=== PATIENT | male | born 1980 | race American Indian/Alaskan Native ===

== ENCOUNTER 2016-06-26 13:58 | Emergency (ER) | payer SELFPAY ==
[2016-06-26 15:04] VITALS: BP 136/84
--- NOTE | 2016-06-26 18:13 | Emergency Department Report ---
HPI - General Chief Complaint: Eye Problems Time Seen by Provider: 06/26/16 17:02 - HPI HPI: 36-year-old male, with past medical history of herniated disks and hemorrhoids, presents today complaining of pain around the right eye and over the temporal region x 3 days. Patient states that he was working on a car 3 days ago applying pressure and felt his right eye pop. Denies any visual change. Positive for minimal nausea. Denies tearing, erythema, drainage. Positive for history of headaches. Denies fever, chills, vomiting, chest pain, shortness of breath, abdominal pain. Patient states it usually feels like a pressure but with strenuous activity the pain is a 10 out of 10. Describes his pain to be at the site at the inner canthus and over the temporal region. ED Past Medical Hx - Past Medical History Hx Asthma: Yes Additional medical history: Back pain and herniated disc. Hoemorrhoids, bronchitis - Surgical History Additional Surgical History: Hemorrhoidectomy - Social History Smoking Status: Current Every Day Smoker Substance Use Type: Alcohol - Medications Home Medications: Home Medications Medication Instructions Recorded Confirmed Last Taken Type Docusate Sodium [Colace] 100 mg PO BID #20 capsule 09/25/14 Unknown Rx Hydrocortisone [Anucort-HC SUPPOS] 25 mg RC BID #20 supp.rect 09/25/14 Unknown Rx Multivitamins Chewables Tablet 09/25/14 09/25/14 09/25/14 History Acetaminophen/Codeine [Tylenol #3] 1 tab PO Q6H PRN #10 tab 06/26/16 Unknown Rx Ondansetron [Zofran Odt] 4 mg PO Q8HR #14 tab.rapdis 06/26/16 Unknown Rx ED Review of Systems ROS: Stated complaint: RIGHT EYE AND [employer] PRESSURE Other details as noted in HPI Constitutional: denies: chills, fever, malaise Eyes: denies: eye pain, eye discharge, vision change ENT: denies: ear pain, throat pain, congestion Respiratory: denies: cough, shortness of breath, wheezing Cardiovascular: denies: chest pain, palpitations Endocrine: no symptoms reported Gastrointestinal: nausea. denies: abdominal pain, vomiting Neurological: headache. denies: weakness, numbness, paresthesias Physical Exam - Physical Exam Vital Signs: Vital Signs 03/09/17 14:58 Temperature 98.5 F Pulse Rate 79 Respiratory 18 Rate Blood Pressure 136/84 O2 Sat by Pulse 100 Oximetry Physical Exam: GENERAL: The patient is well-developed and well-nourished. Patient is in NAD. HEAD: Normocephalic. Atraumatic. EYES: Extraocular motions are intact, PERRL. no conjunctival injection. No tearing or drainage. No pain with EOM. EARS: External auditory canals and tympanic membranes clear; hearing grossly intact. NOSE: Normal nasal mucosa with no nasal discharge. THROAT: No erythema, swelling or exudates. NECK: Supple, nontender, without lymphadenopathy. No meningitic signs are noted. CHEST/LUNGS: Clear to auscultation throughout. HEART/CARDIOVASCULAR: Regular rate and rhythm. No murmurs, rubs or gallops. ABDOMEN: Abdomen is soft, nontender. Bowel sounds normoactive. No guarding or rebound tenderness. EXTREMITIES: Peripheral pulses intact. Capillary refill less than 2 seconds. NEURO: Alert and oriented x 3. Normal gait. CN II-XII intact. Symmetrical strength and sensation. Negative Romberg or pronator drift. Cerebellar testing normal. GCS score of 15. ED Course Vital Signs 06/26/16 14:58 Temperature 98.5 F Pulse Rate 79 Respiratory 18 Rate Blood Pressure 136/84 O2 Sat by Pulse 100 Oximetry ED Medical Decision Making - Lab Data Vital Signs 06/26/16 14:58 Temperature 98.5 F Pulse Rate 79 Respiratory 18 Rate Blood Pressure 136/84 O2 Sat by Pulse 100 Oximetry - Medical Decision Making 36-year-old male presents today with pain around the right thigh and over the right temporal region. His eye and neurological exam is unremarkable. His visual acuity is 20/20. Consulted with Dr. Mendiola, who agrees with the assessment and plan post examining the patient. Patient will be provided with a referral for reimbursement liaison and is highly recommended to follow up with them. Patient is in no acute distress at this time. He will be discharged home and is encouraged to follow up with a primary care provider. He will be sent home on Zofran and Tylenol 3 and is encouraged to return to the emergency room for any worsening symptoms. Critical care attestation.: If time is entered above; I have spent that time in minutes in the direct care of this critically ill patient, excluding procedure time. ED Disposition Clinical Impression: Headache Qualifiers: Headache type: unspecified Headache chronicity pattern: acute headache Intractability: not intractable Qualified Code(s): R51 - Headache Periorbital pain Qualifiers: Laterality: right Qualified Code(s): H57.11 - Ocular pain, right eye Disposition: DISCHARGED TO HOME OR SELFCARE Is pt being admited?: No Does the pt Need Aspirin: No Condition: Stable Instructions: Acute Headache (ED) Additional Instructions: Follow-up with primary care provider. Return to the emergency department if symptoms worsen. Prescriptions: Acetaminophen/Codeine [Tylenol #3] 1 tab PO Q6H PRN #10 tab PRN Reason: Pain Ondansetron [Zofran Odt] 4 mg PO Q8HR #14 tab.rapdis Referrals: PRIMARY MD JACKSON [Primary Care Provider] - 3-5 Days DENISSE POPE MD [Staff Physician] - 3-5 Days [facility] [Outside] - 3-5 Days Forms: Work/School Release Form(ED) Time of Disposition: 18:14
== END 2016-06-26 18:36 | disposition home or self-care (01) ==
LOC: ED 13:58
DX: H57.11 Ocular pain, right eye (principal); R51 Headache; J45.909 Unspecified asthma, uncomplicated; F17.200 Nicotine dependence, unspecified, uncomplicated
CPT/HCPCS: 99282

== ENCOUNTER 2021-12-24 17:04 | Emergency (ER) | payer SELFPAY ==
[2021-12-24 19:07] LABS: Basophils % (Auto) 0.4 % (0.0-1.8); Eosinophils # (Auto) 0.1 K/mm3 (0.0-0.4); Eosinophils % (Auto) 0.5 % (0.0-4.3); Hematocrit 51.3 % (35.5-45.6); Hemoglobin 16.4 gm/dl (11.8-15.2); Lymphocytes # (Auto) 3.1 K/mm3 (1.2-5.4); Lymphocytes % (Auto) 26.7 % (13.4-35.0); Mean Corpuscular HGB Conc 32 % (32-34); Mean Corpuscular Volume 87 fl (84-94); Monocytes # (Auto) 0.7 K/mm3 (0.0-0.8); Monocytes % (Auto) 6.1 % (0.0-7.3); Platelet Count 244 K/mm3 (140-440); Red Blood Count 5.89 M/mm3 (3.65-5.03); Red Cell Distribution Width 15.5 % (13.2-15.2)
[2021-12-24 19:55] LABS: BUN/Creatinine Ratio 5; Blood Urea Nitrogen 5 mg/dL (9-20); Calcium 9.8 mg/dL (8.4-10.2); Hemolysis Index 14
[2021-12-25 03:49] LABS: Color,Urine Dark Yellow (Yellow)
[2021-12-25 03:51] LABS: Hyaline Casts,Urine 1 /LPF; Mucus,Urine FEW /HPF
--- NOTE | 2021-12-25 04:51 | Emergency Department Report ---
<KANDY SHEA - Last Filed: 12/25/21 06:55> ED General Adult HPI - General Chief complaint: Abdominal Pain Stated complaint: BLOOD IN STOOL/VOMITTING Time Seen by Provider: 12/25/21 04:46 - Related Data Home Medications Medication Instructions Recorded Confirmed Last Taken Multivitamins Chewables Tablet 09/25/14 09/25/14 09/25/14 Previous Rx's Medication Instructions Recorded Last Taken Type Docusate Sodium [Colace] 100 mg PO BID #20 capsule 09/25/14 Unknown Rx Hydrocortisone [Anucort-HC SUPPOS] 25 mg RC BID #20 supp.rect 09/25/14 Unknown Rx Ondansetron [Zofran Odt] 4 mg PO Q8HR #14 tab.rapdis 06/26/16 Unknown Rx Acetaminophen/Codeine [Tylenol 1 tab PO Q6H PRN #10 tab 12/25/21 Unknown Rx /Codeine # 3 tab] Dicyclomine [Bentyl] 10 mg PO QID #20 capsule 12/25/21 Unknown Rx Ondansetron [Zofran Odt] 4 mg PO Q8HR #20 tab.rapdis 12/25/21 Unknown Rx Allergies Allergy/AdvReac Type Severity Reaction Status Date / Time No Known Allergies Allergy Verified 12/24/21 17:12 ED Past Medical Hx - Medications Home Medications: Home Medications Medication Instructions Recorded Confirmed Last Taken Type Docusate Sodium [Colace] 100 mg PO BID #20 capsule 09/25/14 Unknown Rx Hydrocortisone [Anucort-HC SUPPOS] 25 mg RC BID #20 supp.rect 09/25/14 Unknown Rx Multivitamins Chewables Tablet 09/25/14 09/25/14 09/25/14 History Ondansetron [Zofran Odt] 4 mg PO Q8HR #14 tab.rapdis 06/26/16 Unknown Rx Acetaminophen/Codeine [Tylenol 1 tab PO Q6H PRN #10 tab 12/25/21 Unknown Rx /Codeine # 3 tab] Dicyclomine [Bentyl] 10 mg PO QID #20 capsule 12/25/21 Unknown Rx Ondansetron [Zofran Odt] 4 mg PO Q8HR #20 tab.rapdis 12/25/21 Unknown Rx ED Medical Decision Making - Lab Data Result diagrams: 12/24/21 18:34 12/24/21 18:34 - Radiology Data Radiology results: report reviewed CT ABDOMEN AND PELVIS WITH AND WITHOUT CONTRAST INDICATION: Gi bleeding CONTRAST: 100 cc Omnipaque 350 IV COMPARISON: None available. All CT scans at this location are performed using CT dose reduction for ALARA by means of automated exposure control. FINDINGS: Lung bases show mild chronic changes. Probable mild atelectasis is seen in the left base. No areas of consolidation are seen. No pneumoperitoneum. No significant abdominal wall herniation. Gallbladder mildly contracted without obvious abnormality. No biliary dilatation. No urinary obstruction. No abdominal masses. Mild fatty infiltration of the liver without significant enlargement. No lymphadenopathy. No free fluid. No inflammatory changes. No urinary tract calculi or evidence of obstruction. Pelvic masses. No bowel obstruction. Appendix normal. No obvious bowel lesions. No obvious enhancement or contrast opacification of bowel. No obvious colonic diverticulosis. No significant bowel wall thickening. IMPRESSION: No acute abnormalities are seen ED Disposition Clinical Impression: Nausea & vomiting Qualifiers: Vomiting type: unspecified Qualified Code(s): R11.2 - Nausea with vomiting, unspecified Diarrhea Qualifiers: Diarrhea type: unspecified type Qualified Code(s): R19.7 - Diarrhea, unspecified Disposition: 01 HOME / SELF CARE / HOMELESS Condition: Stable Instructions: Food Choices to Help Relieve Diarrhea, Adult, Nausea and Vomiting, Adult, [id number], Preventing Gastrointestinal Problems During Exercise Additional Instructions: Take the medication as prescribed. Follow-up with your doctor or doctor/clinic provided. Return if symptoms worsen as indicated by your discharge instructions. Prescriptions: Dicyclomine [Bentyl] 10 mg PO QID #20 capsule Acetaminophen/Codeine [Tylenol /Codeine # 3 tab] 1 tab PO Q6H PRN #10 tab PRN Reason: Pain Ondansetron [Zofran Odt] 4 mg PO Q8HR #20 tab.rapdis Referrals: CHRIS PITT MD [Primary Care Provider] - 3-5 Days PARAS NASH MD [Staff Physician] - 3-5 Days (GI Doctor ) <EDIE PATEL - Last Filed: 12/25/21 21:31> ED General Adult HPI - General Source: patient Mode of arrival: Ambulatory Limitations: No Limitations - History of Present Illness Initial comments: 41 yo with remote history internal hemorrhoid, and colitis about 10 years ago who now present blood in stool that he woke up to yesterday morning. Last bowel movement or diarrhea was around 4 pm yesterday. He described it as bright red blood in the toilet bowl. No dizziness or visual changes reported. No other modifying or associated reported. Severity scale (0 -10): 10 ED Review of Systems ROS: Stated complaint: BLOOD IN STOOL/VOMITTING Other details as noted in HPI Comment: All other systems reviewed and negative Gastrointestinal: abdominal pain, nausea, vomiting, diarrhea ED Past Medical Hx - Past Medical History Previous Medical History?: Yes Hx Asthma: Yes Additional medical history: Back pain and herniated disc. Hoemorrhoids, bronchitis - Surgical History Additional Surgical History: Hemorrhoidectomy - Social History Smoking Status: Never Smoker ED Physical Exam - General Limitations: No Limitations General appearance: alert, in no apparent distress - Head Head exam: Present: normal inspection - Eye Eye exam: Present: normal appearance Pupils: Present: normal accommodation - ENT ENT exam: Present: normal exam, normal orophraynx, mucous membranes moist - Neck Neck exam: Present: normal inspection, full ROM. Absent: tenderness - Respiratory Respiratory exam: Present: normal lung sounds bilaterally. Absent: respiratory distress, accessory muscle use - Cardiovascular Cardiovascular Exam: Present: regular rate, normal rhythm, normal heart sounds - GI/Abdominal GI/Abdominal exam: Present: soft, normal bowel sounds. Absent: distended, tende rness - Extremities Exam Extremities exam: Present: normal inspection, full ROM, normal capillary refill. Absent: tenderness, pedal edema - Back Exam Back exam: Absent: tenderness - Neurological Exam Neurological exam: Present: alert, oriented X3 - Psychiatric Psychiatric exam: Present: normal affect, normal mood - Skin Skin exam: Present: warm, normal color ED Course Vital Signs 12/24/21 12/25/21 12/25/21 17:12 03:42 05:09 Temperature 98.5 F Pulse Rate 89 70 69 Respiratory 16 15 Rate Blood Pressure 130/75 Blood Pressure 125/81 138/75 [Right] O2 Sat by Pulse 98 99 98 Oximetry 12/25/21 12/25/21 12/25/21 08:28 10:07 10:24 Temperature 97.6 F Pulse Rate 74 65 Respiratory 16 18 Rate Blood Pressure Blood Pressure 134/74 107/63 [Right] O2 Sat by Pulse 95 99 99 Oximetry 12/25/21 12/25/21 12/25/21 10:30 10:46 11:00 Temperature Pulse Rate Respiratory Rate Blood Pressure 107/63 105/64 105/64 Blood Pressure [Right] O2 Sat by Pulse 97 95 98 Oximetry 12/25/21 12/25/21 12/25/21 11:16 11:30 11:45 Temperature Pulse Rate Respiratory Rate Blood Pressure 109/66 109/66 95/52 Blood Pressure [Right] O2 Sat by Pulse 97 92 97 Oximetry 12/25/21 12/25/21 12/25/21 12:01 12:15 12:31 Temperature Pulse Rate Respiratory Rate Blood Pressure 112/68 99/57 99/57 Blood Pressure [Right] O2 Sat by Pulse 97 98 95 Oximetry 12/25/21 12/25/21 12/25/21 12:45 13:01 13:15 Temperature Pulse Rate Respiratory Rate Blood Pressure 92/62 92/62 96/57 Blood Pressure [Right] O2 Sat by Pulse 95 95 96 Oximetry ED Medical Decision Making - Lab Data Result diagrams: 12/24/21 18:34 12/24/21 18:34 - Medical Decision Making Here with abdominal pain--differential could be but not limited to gastroenteritis, GERD or gastritis, appendicitis, diverticulitis, cholecystitis, cholelithiasis, nephrolithiasis, pancreatitis, duodenitis, colitis, irritable bowel syndrome, cystitis, so in order to rule this out we will go ahead and order routine acute abdomen that include CBC, CMP, urinalysis, and CT imaging of the abdomen/pelvic. Critical care attestation.: If time is entered above; I have spent that time in minutes in the direct care of this critically ill patient, excluding procedure time. ED Disposition Is pt being admited?: No Does the pt Need Aspirin: No
[2021-12-25] MEDS ORDERED: ONDANSETRON 4 MG/2 ML INJ IV ONE ×2 (05:36→07:04)
--- NOTE | 2021-12-25 06:25 | Cat Scan Report ---
CT ABDOMEN AND PELVIS WITH AND WITHOUT CONTRAST INDICATION: Gi bleeding CONTRAST: 100 cc Omnipaque 350 IV COMPARISON: None available. All CT scans at this location are performed using CT dose reduction for ALARA by means of automated e xposure control. FINDINGS: Lung bases show mild chronic changes. Probable mild atelectasis is seen in the left base. N o areas of consolidation are seen. No pneumoperitoneum. No significant abdominal wall herniation. Gal lbladder mildly contracted without obvious abnormality. No biliary dilatation. No urinary obstruction . No abdominal masses. Mild fatty infiltration of the liver without significant enlargement. No lymph adenopathy. No free fluid. No inflammatory changes. No urinary tract calculi or evidence of obstructi on. Pelvic masses. No bowel obstruction. Appendix normal. No obvious bowel lesions. No obvious enhancement or contrast o pacification of bowel. No obvious colonic diverticulosis. No significant bowel wall thickening. IMPRESSION: No acute abnormalities are seen Signer Name: Jhoan Brown MD Signed: 12/25/2021 6:20 AM Workstation Name: [id number]
[2021-12-25] MEDS ORDERED: SODIUM CHLORIDE 0.9% 1000 ML 1,000 ML IV ONE (07:04)
[2021-12-25] MEDS ORDERED: MORPHINE 4 MG/1 ML INJ IV ONE (07:04)
--- NOTE | 2021-12-25 07:07 | Emergency Department Report ---
Blank Doc - Documentation Documentation: 41-year-old male signed out to me by Dr. Lang to follow-up CAT scan results and dispo. Patient interviewed and examined at the bedside. He continues to have nausea and mid periumbilical abdominal pain that radiates across his abdomen. Pain worse with palpation. No vomiting noted. Patient states symptoms ongoing x2 days with intermittent blood in stool. Patient reports an extensive work-up with outpatient GI doctor about 10 years ago who ruled out colitis. Differential also included irritable bowel syndrome. Labs show increased hemoglobin without anemia. No leukocytosis. No chemistry abnormality. UA without infection. Stool occult negative Additional orders placed IV Zofran, morphine, and normal saline Patient will be reassessed for symptom improvement prior to discharge at 10:25am patient reassessed Patient continues complain of 8/10 abdominal pain but states is "better than it was". Continues complain of nausea without active vomiting. Additional meds ordered Dilaudid 0.5, IM Bentyl, Reglan, and Benadryl. Ultimately patient will be discharged with symptomatic treatment and will be reassessed prior to discharge
[2021-12-25] MEDS ORDERED: HYDROmorphone 1 MG/1 ML INJ IV ONE (10:25)
[2021-12-25] MEDS ORDERED: METOCLOPRAMIDE 10 MG/2 ML INJ IV ONE (10:25)
[2021-12-25] MEDS ORDERED: DICYCLOMINE 20 MG/2 ML INJ IM ONE (10:25)
[2021-12-25] MEDS ORDERED: diphenhydrAMINE 50 MG/ML VIAL IV ONE (10:25)
[2021-12-25 13:28] VITALS: BP 96/57
== END 2021-12-25 13:28 | disposition home or self-care (01) ==
LOC: ED 17:04
DX: R11.2 Nausea with vomiting, unspecified (principal); R19.7 Diarrhea, unspecified; Z79.899 Other long term (current) drug therapy
CPT/HCPCS: 36415; 74178; 80048; 81001; 82270; 85025; 96361; 96372; 96374; 96375; 99284; J0500; J1170; J1200; J2270; J2405; J2765; J7030; Q9967